=== PATIENT | male | born 1985 | race Caucasian/White ===

== ENCOUNTER 2019-01-02 13:45 | Emergency (ER) | payer MEDICAID, OTHER ==
[~2019-01-02] VITALS: Ht 193 cm; Wt 104.3 kg
[2019-01-02 13:59] VITALS: BP 122/74
[2019-01-02] MEDS ORDERED: PROMETHAZINE HCL 25 MG/ML 1ML IM ONE (15:15)
[2019-01-02] MEDS ORDERED: ONDANSETRON ODT 4 MG TAB PO ONE (15:15)
== END 2019-01-02 16:06 | disposition home or self-care (01) ==
LOC: ER 13:48
DX: K52.9 Noninfective gastroenteritis and colitis, unspecified (principal)
CPT/HCPCS: 81002; 99283; Q0162